=== PATIENT | male | born 1960 | race Caucasian/White ===

== ENCOUNTER 2020-09-10 16:31 | Observation (INO) | payer BC ==
[~2020-09-10] VITALS: Ht 177.8 cm; Wt 104.3 kg
[2020-09-10 16:45] VITALS: BP 157/94
[2020-09-10 17:34] LABS: ABSOLUTE NEUTROPHILS 3.4 thou/uL (1.4-8.2); BASOPHILS 0.7 % (0.0-2.0); EOSINOPHILS 3.6 % (0.0-3.0); LYMPHOCYTES 32.3 % (24.0-44.0); MCH 30.2 pg (26.0-34.0); MCHC 33.3 g/dL (28.0-37.0); MCV 90.8 fL (80.0-100.0); MONOCYTES 8.8 % (1.0-8.0); PLATELET COUNT 254 thou/uL (150-400); POLYS 54.6 % (36.0-66.0); RBC 4.62 mil/uL (4.50-6.00); RDW 13.4 % (10.5-14.5); WBC 6.2 thou/uL (4.0-11.0)
[2020-09-10 17:45] LABS: ANION GAP 10 mmol/L (7-16); BUN 16 mg/dL (7-18); CALCIUM 8.6 mg/dL (8.5-10.1); CHLORIDE 104 mmol/L (98-107); CO2 24 mmol/L (21-32); CREATININE 1.2 mg/dL (0.7-1.3); GLUCOSE 103 mg/dL (74-106); POTASSIUM 4.1 mmol/L (3.5-5.1); SODIUM 138 mmol/L (136-145)
[2020-09-10 17:55] LABS: ALBUMIN 3.8 g/dL (3.4-5.0); SGOT 28 U/L (15-37); SGPT 53 U/L (30-65); TOTAL BILIRUBIN 0.4 mg/dL (0.2-1.0); TOTAL PROTEIN 7.4 g/dL (6.4-8.2); TROPONIN-I <0.06 ng/mL (<0.06)
[2020-09-10] MEDS ORDERED: CENTRUM ADULTS1 EACH PO (18:43)
[2020-09-10 20:16] VITALS: BP 133/79
[2020-09-10 20:23] VITALS: BP 134/82
--- NOTE | 2020-09-10 21:48 | NUR ---
PT TRANSPORTED FROM ED ON WC BY TECH WITH BAG OF POSSESSIONS. ADMISSION TASK COMPLETED WITH PATIENT SIGNING INTAKE PAPERS AND GIVING DESIGNED FITNESS/WELLNESS DIRECTOR. ASSESSMENT CHARTED. DENIES ANY PAIN OR COMPLAINTS. AD RAIMUNDO AND ABLE TO AMBULATE WITH NO PROBLEM. PT ORIENTED TO UNIT AND GIVEN ADMISSION PACKET. CARE PLAN STARTED. CONTINUE WITH PLAN OF CARE
[2020-09-11] VITALS (11 sets, daily range): BP systolic 124–144; BP diastolic 65–92
[2020-09-11 05:43] LABS: HEMATOCRIT 41.4 % (42.0-52.0); MCH 30.6 pg (26.0-34.0); MCHC 33.8 g/dL (28.0-37.0); MCV 90.7 fL (80.0-100.0); RBC 4.57 mil/uL (4.50-6.00); RDW 13.2 % (10.5-14.5); WBC 5.6 thou/uL (4.0-11.0)
[2020-09-11 06:03] LABS: ANION GAP 10 mmol/L (7-16); BUN 15 mg/dL (7-18); CALCIUM 8.3 mg/dL (8.5-10.1); CHLORIDE 104 mmol/L (98-107); CO2 23 mmol/L (21-32); CREATININE 1.3 mg/dL (0.7-1.3); GLUCOSE 112 mg/dL (74-106); POTASSIUM 4.2 mmol/L (3.5-5.1); SODIUM 137 mmol/L (136-145); TROPONIN-I <0.06 ng/mL (<0.06)
--- NOTE | 2020-09-11 06:57 | EKG ---
[place] [address] [facility] [address] [place] [address] ELECTROCARDIOGRAM REPORT Name: MARYSHRAVAN Room #: 209-P [facility]..#: [id number] Admission: 09/10/20 Attend Phys: Diogenes Marino MD Discharge: Date of : 58 Report #: [id number] [facility] Test Date: 2020-09-10 Test Time: 16:38:20 Pat Name: SHRAVAN HERNANDEZ Department: Room: 209 Gender: M Seat Mender: YULIA : 1960 Requested By: Sarah Quintana Order Number: [id number] MD: Richard Pérez Measurements Intervals [place] Rate: 69 P: -9 [place]: 152 QRS: 2 QRSD: 112 T: 20 QT: 404 QTc: 433 Interpretive Statements Sinus rhythm Borderline intraventricular conduction delay Borderline T abnormalities, inferior leads No previous ECG available for comparison Electronically Signed On 09-11-2020 6:57:09 CDT by Richard Pérez [email or web address] <ELECTRONICALLY SIGNED> By: Richard Pérez MD, [facility] 09/11/20 0657 [id number] Richard Pérez MD, FACC /EPI
[2020-09-11 08:04] LABS: CHOLESTEROL 210 mg/dL (<200); HDL CHOLESTEROL 30 mg/dL (>40); TRIGLYCERIDE 447 mg/dL (<150); VLDL 89 mg/dL (<40)
--- NOTE | 2020-09-11 08:45 | 2DMMODE ---
[facility] [place] [address] 2 D/M-MODE ECHOCARDIOGRAM Name: SHRAVAN HERNANDEZ Room #: 209-P ADM Sheryl M.R.#: [id number] Admission: 09/10/20 Attend Phys: Diogenes Marino MD Discharge: Date of : 58 Report #: [id number] THIS REPORT FOR: cc: FAM - No family physician/PCP FAM - No family physician/PCP Camden Anderson MD [facility] ~ APPROVED REPORT Study performed: 09/11/2020 07:27:51 EXAM: Comprehensive 2D, Doppler, and color-flow Echocardiogram Patient Location: Bedside Room #: 209 Status: routine BSA: 2.21 HR: 61 bpm BP: 132/85 mmHg Rhythm: NSR Other Information Study Quality: Adequate Indications Dyspnea Chest Pain Hx: CAD, stent, HTN, HLP. 2D Dimensions RVDd: 32.16 mm IVSd: 12.79 (7-11mm) LVOT Diam: 21.79 (18-24mm) LVDd: 50.55 mm PWd: 12.26 (7-11mm) Ascending Ao: 37.05 (22-36mm) LVDs: 31.75 (25-40mm) Left Atrium: 42.88 (27-40mm) Aortic Root: 35.80 mm Volumes Left Atrial Volume (Systole) Single Plane 4CH: 47.04 mL Single Plane 2CH: 89.55 mL LA ESV Index: 32.00 mL/m2 Aortic Valve AoV Peak Almas.: 1.19 m/s AO Peak Gr.: 5.65 mmHg LVOT Max P.32 mmHg [facility] [address] [address] 2 D/M-MODE ECHOCARDIOGRAM Name: SHRAVAN HERNANDEZ Room #: 209-P [facility] [place] ..#: [id number] Admission: 09/10/20 Attend Phys: Diogenes Marino MD Discharge: Date of : 58 Report #: [id number] LVOT Max V: 0.91 m/s EILEEN Vmax: 2.86 cm2 Mitral Valve E/A Ratio: 2.0 MV Decel. Time: 286.49 ms MV E Max Almas.: 0.96 m/s MV A Almas.: 0.49 m/s MV PHT: 83.08 ms IVRT: 73.82 ms Pulmonary Valve PV Peak Almas.: 1.03 m/s PV Peak Gr.: 4.20 mmHg Pulmonary Vein P Vein S: 0.58 m/s P Vein A: 0.31 m/s P Vein D: 0.44 m/s P Vein A Dur.: 143.0 msec P Vein S/D Ratio: 1.32 Tricuspid Valve TR Peak Almas.: 2.18 m/s RAP Estimate: 5.00 mmHg TR Peak Gr.: 19.02 mmHg PA Pressure: 24.00 mmHg Left Ventricle The left ventricle is normal size. There is normal LV segmental wall motion. There is normal left ventricular wall thickness. Left ventricular systolic function is normal. LVEF is 60-65%. The left ventricular diastolic function is normal. Right Ventricle The right ventricle is normal size. The right ventricular systolic function is normal. Atria Left atrium is mildly dilated. The right atrium size is normal. Aortic Valve The aortic valve is normal in structure. Trace aortic regurgitation. There is no aortic valvular stenosis. Mitral Valve The mitral valve is normal in structure. There is no mitral valve regurgitation noted. No evidence of mitral valve stenosis. [facility] [address] [address] 2 D/M-MODE ECHOCARDIOGRAM Name: SHRAVAN HERNANDEZ Room #: 209-P ADM IN M.R.#: [id number] Admission: 09/10/20 Attend Phys: Diogenes Marino MD Discharge: Date of : 58 Report #: [id number] Tricuspid Valve The tricuspid valve is normal in structure. Trace tricuspid regurgitation. Estimated PAP is 25mmHg. Pulmonic Valve The pulmonary valve is normal in structure. There is no pulmonic valvular regurgitation. Great Vessels The aortic root is normal in size. The ascending aorta is normal in size. IVC is normal in size and collapses >50% with inspiration. Pericardium There is no pericardial effusion. <Conclusion> Left ventricular systolic function is normal. There is normal LV segmental wall motion. LVEF is 60-65%. Normal diastolic function The aortic valve is normal in structure. Trace aortic regurgitation, no stenosis. The mitral valve is normal in structure. No mitral valve regurgitation Trace tricuspid regurgitation. Estimated pulmonary artery pressure of 25mmHg. There is no pericardial effusion. <ELECTRONICALLY SIGNED> By: Camden Anderson MD, FACC 09/11/2044 3 3 Camden Anderson MD, FAC /INF
[2020-09-11] MEDS ORDERED: METOPROLOL TART25 MG PO (13:59)
[2020-09-11] MEDS ORDERED: LIPITOR40 MG PO (13:59)
[2020-09-11] MEDS ORDERED: BAYER CHEWABLE81 MG PO (13:59)
--- NOTE | 2020-09-11 15:31 | CATHLAB ---
[facility] [place] [address] INVASIVE PROCEDURE REPORT Name: SHRAVAN HERNANDEZ Room #: 209-P ADM Sheryl Palacios#: [id number] Admission: 09/10/20 Attend Phys: Diogenes Marino MD Discharge: Date of : 58 Report #: [id number] THIS REPORT FOR: cc: FAM - No family physician/PCP FAM - No family physician/PCP Jayant Urena MD [facility] ~ APPROVED REPORT Study performed: 09/11/2020 10:28:03 Patient Details Patient Status: In-Patient Room #: 209 The patient is a 60 year-old male Event Personnel Jayant Urena [facility] Clinical Supervisor, Nellie Jolly RN RN, Maral Morley RTR Monitor, Maria Dolores Ribeiro RTR, INTERNATIONAL SOURCING MANAGER Scrub Procedures Performed Art Access - R femoral artery* Left Heart Cath w/or w/o Coronaries [id number] [facility] Aortogram Abdominal Peripheral Angio 850712 Hemostasis w/ Mynx 47165 Initial Mod Sed Same Phys/QHP Gr5y [id number] 47253 Mod Sed Same Phys/QHP Ea 490403 Procedure Narrative The Right Groin^ was infiltrated with 1% Lidocaine subcutaneous anesthesia. A PINNACLE 6FR Sheath #[id number] sheath was inserted into the RFA^. Coronary angiography was performed using coronary diagnostic catheters. The right coronary system was accessed and visualized with a JR4 catheter. The left coronary system was accessed and visualized with a JL4 catheter. The left ventricle was accessed and visualized with a PIGTAIL catheter. Left ventriculogram was performed in 30 degree projection. An aortogram of the abdominal aorta was performed. Closure device was deployed with a Fr MYNXGRIP 6/7F #[id number]. The patient tolerated the procedure well and there were no complications associated with the procedure. There was no hematoma. Intraoperative Conscious Sedation Sedation start time: 11:20 Case end Time: 11:47 Fentanyl 50 mcg Vers[address] 0.[address] [facility] [address] [place] [address] INVASIVE PROCEDURE REPORT Name: SHRAVAN HERNANDEZ Room #: 209-P [facility] IN .R.#: [id number] Admission: 09/10/20 Attend Phys: Diogenes Marino MD Discharge: Date of : 58 Report #: [id number] Fluoro Time: 1.60 minutes Dose: DAP 7575.70 cGycm2 957 mGy Contrast Type and Amount: Visipaque 110 ml Hemodynamics The aortic pressure is 140/76 mmHg with a mean of 68 mmHg. The left ventricular pressure is 128/5 mmHg with a mean of mmHg. The left ventricular end diastolic pressure is 23 mmHg. Conclusion 1. Normal left jugular size and systolic function showing subtle anterior apical wall leg EF 50 to 55%. #2 abdominal aorta is intact without evidence of aneurysm. Single bilateral renal arteries are patent and an accessory branch of the left renal is moderately diseased. #3 left main long free of disease giving rise to LAD and circumflex. #4 the LAD is moderately diseased with proximal calcification eccentric 50% lesion preserved distal vessel which stops short of the apex. #5 circumflex OM is nondominant but large OM branch eccentric plaque in the circumflex of 50% giving rise into a large OM branch which is widely patent. #6 dominant right coronary artery with diffuse distal disease 30 to 40% giving rise to a PDA PAYAL. The distal third has previously placed stents which are widely patent. It looks like 2 sequential stents. No indication for intervention. Recommendations and plan: Continue aggressive risk factor modification. No indication for coronary intervention. <ELECTRONICALLY SIGNED> By: Jayant Urena MD, FACC 09/11/201529 29 29 Jayant Urena MD, FACC /INF
--- NOTE | 2020-09-11 16:25 | NUR ---
ASSESSMENT CHARTED. PT ALERT AND ORIENTED. DENIED HAVING PAIN OR DISCOMFORT. HAD CARDIAC CATH TODAY. RIGHT GROIN INCISION C/D/I. NO HEMATOMA NOTED. VSS. ORDERS GIVEN TO DISCHARGE PT TO HOME. DISCHARGE INSTRUCTIONS GIVEN TO PT. PT VERBERLISED UNDERSTANDING.
== END 2020-09-11 17:44 | disposition home or self-care (01) ==
LOC: ER 16:31 → EROBS 18:35 → 2N 20:24 → EROBS 20:25 → 2N 20:42
PROVIDERS: Nurse Practitioner Adult Health; Nurse Practitioner Family; ADMIT Hospitalist; ATTEND Hospitalist
DX: I25.118 Atherosclerotic heart disease of native coronary artery with other forms of angina pectoris (principal); I10 Essential (primary) hypertension; E78.5 Hyperlipidemia, unspecified; Z87.891 Personal history of nicotine dependence; Z79.899 Other long term (current) drug therapy